=== PATIENT | male | born 1995 | race Caucasian/White ===

== ENCOUNTER → 2016-12-16 | Outpatient (CLI) | payer BC ==
--- NOTE | 2016-12-16 11:38 | DIAGNOSTIC IMAGING REPORT ---
LEFT SHOULDER MIN 2 VIEWS ROUTINE CLINICAL HISTORY: Left shoulder pain status post trauma COMPARISON: None. DISCUSSION: No fractures or dislocations are visualized. There are no visible periarticular calcifications. IMPRESSION: No fractures or dislocations identified. Electronically signed by: Mason Zamora M.D. 12/16/2016 11:37 AM Dictated Date/Time: 12/16/2016 11:36 AM
--- NOTE | 2016-12-16 11:39 | DIAGNOSTIC IMAGING REPORT ---
LEFT CLAVICLE CLINICAL HISTORY: Left clavicular pain status post trauma COMPARISON: None. DISCUSSION: No fractures are visualized. There is no conventional radiographic evidence of an AC joint separation. IMPRESSION: No fractures identified. Electronically signed by: Mason Zamora M.D. 12/16/2016 11:37 AM Dictated Date/Time: 12/16/2016 11:37 AM
== END | disposition home or self-care (01) ==
LOC: C.RAD1850 11:19
PROVIDERS: ATTEND Nurse Practitioner
DX: S49.92XA Unspecified injury of left shoulder and upper arm, initial encounter (principal); X58.XXXA Exposure to other specified factors, initial encounter